=== PATIENT | male | born 1965 | race Caucasian/White ===

== ENCOUNTER 2018-07-17 11:52 | Emergency (ER) | payer BC, OTHER ==
[2018-07-17] MEDS ORDERED: Acetaminophen 500 MG TAB ONE ×2 (12:49)
[2018-07-17] MEDS ORDERED: Ketorolac Tromethamine 60 MG/2 ML VIAL ONE (13:26)
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
== END 2018-07-17 13:55 | disposition home or self-care (01) ==
LOC: NAV ERS 11:52
DX: S13.9XXA Sprain of joints and ligaments of unspecified parts of neck, initial encounter (principal); I10 Essential (primary) hypertension; E11.9 Type 2 diabetes mellitus without complications; Z79.899 Other long term (current) drug therapy; Z79.84 Long term (current) use of oral hypoglycemic drugs; V43.52XA Car driver injured in collision with other type car in traffic accident, initial encounter
CPT/HCPCS: 70450; 72125; 96372; J1885